=== PATIENT | male | born 1985 | race Caucasian/White ===

== ENCOUNTER 2016-09-12 19:42 | Emergency (ER) | payer OTHER ==
[2016-09-12 20:58] LABS: BASOPHIL % 0.3 % (0-2); PLATELET COUNT 198 x10^3mcL (130-400); RED CELL DISTRIBUTION WIDTH 12.9 % (11.5-14.5)
[2016-09-12 21:12] LABS: CALCIUM 9.2 mg/dL (8.5-10.1); CARBON DIOXIDE 24.8 mmol/L (21-32); CHLORIDE SERUM 103 mmol/L (98-107); CREATININE SERUM 0.9 mg/dL (0.7-1.3); GFR1 > 60 mL/min; GLUCOSE SERUM 100 mg/dL (74-106); POTASSIUM SERUM 3.6 mmol/L (3.5-5.1); SODIUM SERUM 140 mmol/L (136-145)
[2016-09-12 21:17] LABS: ALBUMIN 4.6 g/dL (3.4-5.0); ALKALINE PHOSPHATASE 63 U/L (46-116); ALT/SGPT 58 U/L (16-63); AST/SGOT 33 U/L (15-37); BILIRUBIN TOTAL 0.86 mg/dL (0.20-1.00); CHOLESTEROL 179 mg/dL (<200); HDL CHOLESTEROL 50 mg/dL (40-60); PHOSPHOROUS 3.7 mg/dL (2.5-4.9); URIC ACID 6.4 mg/dL (3.5-7.2)
[2016-09-12 21:54] VITALS: BP 133/76
== END 2016-09-12 21:54 | disposition home or self-care (01) ==
LOC: ED 19:42
PROVIDERS: Emergency Medicine
DX: K22.6 Gastro-esophageal laceration-hemorrhage syndrome (principal); F41.9 Anxiety disorder, unspecified
CPT/HCPCS: 36415; 83880; Q0092

== ENCOUNTER 2017-03-17 15:10 | Emergency (ER) | payer OTHER ==
[~2017-03-17] VITALS: Ht 177.8 cm; Wt 90.7 kg
[2017-03-17 15:18] VITALS: Ht 177.8 cm; Wt 90.7 kg
[2017-03-17 21:14] VITALS: BP 126/69
== END 2017-03-17 21:14 | disposition home or self-care (01) ==
LOC: ED 15:10
DX: J02.9 Acute pharyngitis, unspecified (principal)
CPT/HCPCS: J1100; Q0162